=== PATIENT | male | born 1985 | race Two or more races ===

== ENCOUNTER 2024-01-26 01:58 | Emergency (ER) | payer OTHER ==
[~2024-01-26] VITALS: Ht 175.3 cm; Wt 73.0 kg
[~2024-01-26 01:58] MED LIST: DEXT10CA9 PO
[2024-01-26 02:04] VITALS: BP 140/95; RESP 18; TEMP 97.8; O2SAT 100
[2024-01-26 02:08] VITALS: PULSE 92
[2024-01-26 02:48] LABS: BASOPHILS % 1.1 % (0.0-2.0); EOSINOPHILS % 2.7 % (0.0-5.0); HEMATOCRIT. 42.4 % (42.0-52.0); HEMOGLOBIN. 14.3 g/dL (14.0-18.0); LYMPHOCYTES % 39.1 % (20.0-50.0); MEAN CORPUSCULAR HEMOGLOBIN 31.6 pg (28.0-32.0); MEAN CORPUSCULAR HGB CONC 33.7 g/dL (31.0-37.0); MEAN CORPUSCULAR VOLUME 93.7 fL (80.0-94.0); MEAN PLATELET VOLUME 8.2 fl (7.4-10.4); MONOCYTES % 7.1 % (2.0-8.0); PLATELET 215 x1000/uL (130-400); RED BLOOD CELL COUNT 4.52 mill/uL (4.7-6.1); RED CELL DISTRIBUTION WIDTH 13.2 % (11.6-14.6); WHITE BLOOD COUNT 4.5 x1000/uL (4.5-11.0)
[2024-01-26 02:52] LABS: CHLORIDE 106 mEq/L (98-107); SODIUM 140 mEq/L (136-145)
[2024-01-26 02:53] LABS: CARBON DIOXIDE 30 mEq/L (21-32)
[2024-01-26 02:54] LABS: CALCIUM 9.2 mg/dL (8.7-10.4)
[2024-01-26 02:58] LABS: CREATININE 1.2 mg/dL (0.6-1.3); GLUCOSE 105 mg/dL (70-105)
[2024-01-26 02:59] LABS: UREA NITROGEN BLOOD 7 mg/dL (9-23)
[2024-01-26 03:12] LABS: TROPONIN I HIGH SENSITIVITY < 4 ng/L (3.0-53)
[2024-01-26 03:13] LABS: ETHANOL BLOOD < 10 mg/dL (<10)
== END 2024-01-26 05:41 | disposition home or self-care (01) ==
LOC: ER 02:08
DX: R42 Dizziness and giddiness (principal); R07.9 Chest pain, unspecified; R06.02 Shortness of breath; Z86.73 Personal history of transient ischemic attack (TIA), and cerebral infarction without residual deficits
CPT/HCPCS: 36415; 71045; 80048; 80320; 84484; 85025; 99284; G0480